=== PATIENT | male | born 1995 | race African-American/Black ===

== ENCOUNTER 2016-08-21 01:08 | Emergency (ER) | payer BC ==
[2016-08-21 01:21] VITALS: BP 129/76; PULSE 88; TEMP 97.9; BMI 22.7
[2016-08-21] MEDS ORDERED: IBUPROFEN 600 MG TABLET (FP) PO ONE ×2 (03:08→03:57)
--- NOTE | 2016-08-21 03:46 | PDOC ---
History of Present Illness - General Chief Complaint: Injury Stated Complaint: R ANKLE INJURY Time Seen by Provider: 08/21/16 01:31 History Source: Patient Exam Limitations: No Limitations - History of Present Illness Initial Comments: 08/21/16 03:34 21yo Male patient presents to ED c/o right ankle injury sustained tonight while rough housing with friends. Patient states he is able to bear minimal weight on right foot. Patient denies any other complaints at this time. Cold compress applied. Occurred: reports: just prior to arrival Severity: reports: moderate Pain Location: reports: lower extremity Method of Injury: Yes: other (See HPI) Modifying Factors: worse with: None, cold therapy, immobilization, pain medication, rest, other Loss of Consciousness: no loss of consciousness Past History - Travel Traveled outside of the country in the last 30 days: No Close contact w/someone who was outside of country & ill: No - Past Medical History Allergies/Adverse Reactions: Allergies Allergy/AdvReac Type Severity Reaction Status Date / Time No Known Allergies Allergy Verified 08/21/16 01:19 Home Medications: Ambulatory Orders NK [No Known Home Medication] 05/12/15 Asthma: Yes - Immunization History Immunization Up to Date: Yes - Psycho/Social/Smoking Cessation Hx Anxiety: No Suicidal Ideation: No Smoking History: Never smoked Have you smoked in the past 12 months: No Information on smoking cessation initiated: No Hx Alcohol Use: No Drug/Substance Use Hx: No Substance Use Type: None Trauma Specific PMHX - Complaint Specific PMHX Arthritis: No Back Injury: No Neck Injury: No Hx Sacro Iliac Joint Dysfunction: No Review of Systems - Review of Systems Able to Perform ROS?: Yes Is the patient limited Occitan proficient: No Musculoskeletal: Yes: Joint Pain, Joint Swelling. No: Back Pain All Other Systems: Reviewed and Negative *Physical Exam - Vital Signs Last Vital Signs Temp Pulse Resp BP Pulse Ox 97.9 F 88 20 129/76 100 08/21/16 01:19 08/21/16 01:19 08/21/16 01:19 08/21/16 01:19 08/21/16 01:19 - Physical Exam General Appearance: Yes: Nourished, Appropriately Dressed, Mild Distress. No: Apparent Distress, Moderate Distress, Severe Distress Respiratory/Chest: positive: Lungs Clear, Normal Breath Sounds. negative: Respiratory Distress, Accessory Muscle Use, Labored Respiration, Rapid RR Cardiovascular: positive: Regular Rhythm, Regular Rate. negative: Edema, JVD, Murmur Musculoskeletal: positive: Normal Inspection. negative: CVA Tenderness Extremity: positive: Normal Capillary Refill, Normal Inspection, Swelling. negative: Normal Range of Motion (Decreased ROM Right Ankle), Pedal Edema, Calf Tenderness, Erythema, Inflammation Integumentary: positive: Normal Color, Dry, Warm, Swelling. 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 intact, Fully Oriented, Alert, Normal Mood/ Affect, Normal Response, Motor Strength 5/5 Procedures - Splinting Splint Location: Right: Foot, Ankle Pre-Proc Neuro Vasc Exam: normal Hand-Made Type: Mckeon Dressing Splint Type: Yes: Short Leg Post-Proc Neuro Vasc Exam: normal Thomas Bandage: 4" Sling: No Complications: No Post splint xray: No Good repositioning: No *DC/Admit/Observation/Transfer Diagnosis at time of Disposition: Right ankle sprain Qualifiers: Encounter type: initial encounter Involved ligament of ankle: unspecified ligament Qualified Code(s): S93.401A - Sprain of unspecified ligament of right ankle, initial encounter - Discharge Dispostion Disposition: HOME Condition at time of disposition: Stable Admit: No - Referrals Referrals: Lito Cam MD [Staff Physician] - - Patient Instructions Printed Discharge Instructions: DI for Ankle Sprain Additional Instructions: FOLLOW UP WITH YOUR PRIMARY CARE PROVIDER OR DR. CAM FOR FURTHER EVALUATION. CONTINUE TO APPLY COLD COMPRESS TO AFFECTED AREA NEEDED. KEEP LEG ELEVATED ON TOP OF PILLOWS WHILE RESTING. MOTRIN OR TYLENOL FOR PAIN NEEDED. NON-WEIGHT BEARING CRUTCHES USE. Print Language: VENEZUELAN - Post Discharge Activity Work/School Note: Back to Work
== END 2016-08-21 03:59 | disposition home or self-care (01) ==
LOC: JER 01:08
PROC: 2W3LX1Z Immobilization of Right Lower Extremity using Splint (ICD-10-PCS; principal; 2016-08-21)
DX: S93.401A Sprain of unspecified ligament of right ankle, initial encounter (principal); X50.0XXA Overexertion from strenuous movement or load, initial encounter; Y93.83 Activity, rough housing and horseplay; Y92.89 Other specified places as the place of occurrence of the external cause
CPT/HCPCS: 73610-TC-RT; 73630-TC-RT; 99283-25